=== PATIENT | female | born 1995 ===

== ENCOUNTER 2019-11-22 12:36 | Inpatient (IN) | payer OTHER ==
[2019-11-22 15:51] LABS: Hematocrit 39.9 % (30.3-42.9); Hemoglobin 13.6 gm/dl (10.1-14.3); Mean Corpuscular HGB Conc 34 % (30-34); Mean Corpuscular Volume 91 fl (79-97); Platelet Count 221 K/mm3 (140-440); Red Blood Count 4.38 M/mm3 (3.65-5.03); Red Cell Distribution Width 14.1 % (13.2-15.2)
[2019-11-22] MEDS ORDERED: fentaNYL 100 MCG/2 ML INJ IV ONE ×2 (16:21→18:40)
[2019-11-22] MEDS ORDERED: LACTATED RINGERS 1,000 ML IV ONE (16:21)
[2019-11-22] MEDS ORDERED: fentaNYL 100 MCG/2 ML INJ ONE (18:45)
--- NOTE | 2019-11-22 19:12 | Ultrasound Report ---
ULTRASOUND BIOPHYSICAL PROFILE INDICATION / CLINICAL INFORMATION: FWB. COMPARISON: None available. FINDINGS: BREATHING MOVEMENT = 2 GROSS BODY MOVEMENT = 2 TONE = 2 QUALITATIVE AMNIOTIC FLUID VOLUME = 2 TOTAL BIOPHYSICAL SCORE = 8/8 AMNIOTIC FLUID INDEX (cm) = 1.6 PRESENTATION: Cephalic. HEART RATE (beats per minute): 137 IMPRESSION: 1. biophysical profile = 8/8 2. GUILLERMO is low measuring 1.6 cm, as above, concerning for oligohydramnios Signer Name: Vargas Montenegro MD Signed: 11/22/2019 7:07 PM Workstation Name: [id number]
[2019-11-22] MEDS ORDERED: BUTORPHANOL 2 MG/1 ML INJ IV PRN (19:24)
[2019-11-22] MEDS ORDERED: MINERAL OIL 30 ML ORAL LIQD PO PRN (19:25)
[2019-11-22] MEDS ORDERED: TERBUTALINE 1 MG/1 ML INJ IVP PRN (19:25)
[2019-11-22] MEDS ORDERED: TERBUTALINE 1 MG/1 ML INJ SUB-Q PRN (19:25)
[2019-11-22] MEDS ORDERED: LIDOCAINE (2%) 20 MG/1 ML VIAL 20 ML MDV INFILTRATI ONE (19:25)
[2019-11-22] MEDS ORDERED: ePHEDrine SULFATE 50 MG/1 ML INJ IV PRN (19:25)
[2019-11-22] MEDS ORDERED: LACTATED RINGERS 1,000 ML IV SCH (20:00)
[2019-11-22] MEDS ORDERED: OXYTOCIN 20 UNIT/1000ML DRIP 20 UNITS/1,000 ML BAG IV SCH (20:00)
[2019-11-22] MEDS ORDERED: LANOLIN/ZINC/DIMETHICONE (LANSINOH) 7 GM TP PRN (20:49)
[2019-11-22] MEDS ORDERED: diphenhydrAMINE 25 MG CAP PO PRN (20:49)
[2019-11-22] MEDS ORDERED: WITCH HAZEL/ GLYCERIN PAD TP PRN (20:49)
[2019-11-22] MEDS ORDERED: HYDROcodone/ACETAMINOPHEN 5-325 MG TAB PO PRN (21:00)
--- NOTE | 2019-11-22 21:18 | History and Physical Report ---
History of Present Illness Date of examination: 11/22/19 Date of admission: 11/22/19 12:36 Chief complaint: My water broke this morning History of present illness: Early entry to care, course complicated by Anemia. Past History Past Medical History: no pertinent history Past Surgical History: no surgical history Family/Genetic History: none Social history: no significant social history, single - Obstetrical History Expected Date of Delivery: 12/05/19 Actual Gestation: 38 Week(s) 1 Day(s) : 2 Para: 1 Hx # Term Pregnancies: 1 Number of Living Children: 1 Medications and Allergies Allergies Allergy/AdvReac Type Severity Reaction Status Date / Time No Known Allergies Allergy Unverified 11/08/19 18:57 Home Medications Medication Instructions Recorded Confirmed Last Taken Type No Known Home Medications [No 11/22/19 11/22/19 Unknown History Reported Home Medications] Active Meds: Active Medications Butorphanol Tartrate (Stadol) 2 mg IV Q2H PRN PRN Reason: Labor Pain Ephedrine Sulfate (Ephedrine Sulfate) 10 mg IV Q2M PRN PRN Reason: Hypotension Oxytocin/Sodium Chloride (Pitocin/Ns 20 Unit/1000ml Drip) 20 units in 1,000 mls @ 125 mls/hr IV DIRECT NILS Lactated Ringer's (Lactated Ringers) 1,000 mls @ 125 mls/hr IV DIRECT NILS Last Admin: 11/22/19 19:00 Dose: 125 mls/hr Documented by: Mineral Oil (Mineral Oil) 30 ml PO QHS PRN PRN Reason: Constipation Terbutaline Sulfate (Brethine) 0.25 mg SUB-Q ONCE PRN PRN Reason: Hyperstimulation/Hypertonicity Terbutaline Sulfate (Brethine) 0.25 mg IVP ONCE PRN PRN Reason: Hyperstimulation/Hypertonicity Review of Systems All systems: negative - Vital Signs Vital signs: Vital Signs Pulse Pulse Ox 77 98 11/22/19 13:20 11/22/19 13:20 Temp Pulse Resp BP Pulse Ox 97.8 F 102 H 18 119/71 99 11/22/19 19:59 11/22/19 21:08 11/22/19 19:59 11/22/19 20:51 11/22/19 21:08 - Physical Exam Breasts: Positive: normal Cardiovascular: Regular rate Lungs: Positive: Clear to auscultation, Normal air movement Abdomen: Positive: normal appearance, soft, normal bowel sounds Genitourinary (Female): Positive: normal external genitalia, normal perenium Vagina: Positive: normal moisture Uterus: Positive: enlarged Anus/Rectum: Positive: normal perianal skin - Obstetrical FHR: category 1 Uterine Contraction Monitor Mode: External Cervical Dilatation: 2 Cervical Effacement Percentage: 60 station: -3 Uterine Contraction Pattern: Regular Uterine Tone Measurement Phase: Resting Uterine Contraction Intensity: Moderate Results Result Diagrams: 11/22/19 14:54 All other labs normal. Assessment and Plan A: IUP @ 38 1/7 Weeks SROM GBS Negative P: Admit to L&D per Routine Orders Expectant Management
--- NOTE | 2019-11-22 21:24 | Procedure Note ---
OB Delivery Note - Delivery Date of Delivery: 11/22/19 (2033) Surgeon: NAUN VIDAL Estimated blood loss: 200cc - Vaginal Delivery presentation: vertex Delivery position: OA Intrapartum events: none Delivery induction: none Delivery monitor: external FHT, external uterine Route of delivery: Delivery placenta: spontaneous Delivery cord: 3 umbilical vessels Episiotomy: none Delivery laceration: none Anesthesia: none Delivery comments: of a live 6'14 female over a intact perineum under IV pain control with Apgars of 8 and 9 at 2033 on 11/22/2019. Infant directly to maternal abd/chest, skin to skin contact. Spontaneous delivery of placenta complete and intact with Spann side presenting at 2036. Fundus is firm and midline located 4 below the U. Lochia is scant. Delayed cord clamping and cutting; Cord cut by Father of the Baby. Cord blood collected; Placenta discarded. - A at 1 minute: 8 at 5 minutes: 9 Infant Gender: Female
[2019-11-23] MEDS: IBUPROFEN 600 MG TAB PO SCH ×4 (00:12→17:45)
[2019-11-23] MEDS: FERROUS SULFATE 325 MG TAB PO SCH ×3 (00:12→21:25)
--- NOTE | 2019-11-23 08:38 | Progress Note ---
Assessment and Plan A: PP Day #1 Stable P: Follow Routine Orders D/C home today per patient request RTO in 6 Weeks Subjective - Subjective Date of service: 11/23/19 Interval history: Early entry to care, course complicated by Anemia. Patient reports: appetite normal, voiding normally, pain well controlled, flatus, ambulating normally [place]: doing well, bottle feeding (and ) Objective - Vital Signs Latest vital signs: Vital Signs Temp Pulse Resp BP BP Pulse Ox 11/23/19 04:01 98.2 F 69 20 104/62 98 11/23/19 00:12 18 11/22/19 23:30 98.2 F 74 18 115/58 98 11/22/19 23:01 76 109/69 11/22/19 23:00 98.9 F 76 109/69 11/22/19 22:33 94 H 98 11/22/19 22:28 87 99 11/22/19 22:23 71 99 11/22/19 22:18 83 99 11/22/19 22:13 77 99 11/22/19 22:08 82 98 11/22/19 22:03 75 98 11/22/19 21:58 72 99 11/22/19 21:53 76 99 11/22/19 21:52 92 H 110/59 11/22/19 21:48 96 H 99 11/22/19 21:43 82 99 11/22/19 21:38 86 99 11/22/19 21:33 80 99 11/22/19 21:28 71 100 11/22/19 21:23 76 99 11/22/19 21:18 98 H 99 11/22/19 21:13 99 H 99 11/22/19 21:08 102 H 99 11/22/19 21:03 96 H 100 11/22/19 20:58 99 H 100 11/22/19 20:53 100 H 100 11/22/19 20:51 92 H 119/71 11/22/19 20:48 79 99 11/22/19 20:43 102 H 99 11/22/19 20:38 114 H 99 11/22/19 20:33 122 H 98 11/22/19 20:28 120 H 99 11/22/19 20:23 96 H 98 11/22/19 20:22 112 H 119/64 06/17/20 20:18 99 H 97 0617/20 20:13 100 H 99 06/17/20 20:08 84 98 06/17/20 20:03 100 H 98 0617/20 19:59 97.8 F 100 H 18 135/83 135/83 0617/20 19:58 87 99 0617/20 19:40 100 H 98 0617/20 19:35 93 H 98 061720 19:30 92 H 100 1720 19:25 97 H 99 0617/20 19:21 88 100/60 0617/20 19:20 87 98 061720 19:15 94 H 98 1720 19:10 87 98 061720 19:05 89 97 1720 19:00 78 98 061720 18:55 77 99 061720 18:51 72 122/76 0617/20 18:50 72 99 1720 18:45 89 100 20 18:40 86 98 20 18:35 94 H 99 1720 18:30 89 98 061720 18:25 88 99 061720 18:21 86 119/68 0617/20 18:20 88 98 1720 18:15 84 98 1720 18:10 82 98 061720 18:05 85 99 1720 17:55 86 99 061720 17:52 86 108/62 1720 17:50 77 98 061720 17:45 80 98 061720 17:40 86 98 061720 17:35 91 H 99 1720 17:33 98.8 F 75 98 0617/20 17:30 86 99 0617/20 17:25 81 99 061720 17:21 92 H 110/60 061720 17:20 93 H 99 061720 17:18 100 H 74 L 061720 17:15 98 H 97 0617/20 17:10 84 99 0617/20 17:05 86 98 061720 17:00 89 97 1720 16:58 95 H 92 20 16:55 101 H 98 20 16:51 80 119/69 0620 16:50 86 98 20 16:45 85 98 20 16:40 89 98 20 16:35 75 99 0620 16:30 85 98 20 16:25 94 H 97 20 16:22 77 107/62 20 16:20 75 98 20 16:15 78 100 20 16:10 84 99 1720 16:05 94 H 99 11/22/19 16:00 85 98 20 15:55 83 98 20 15:52 82 112/53 11/22/19 15:50 91 H 98 11/22/19 15:45 95 H 98 11/22/19 15:40 84 98 11/22/19 15:35 100 H 98 11/22/19 15:30 89 97 11/22/19 15:25 80 98 11/22/19 15:22 83 110/57 11/22/19 15:20 90 97 11/22/19 15:15 78 98 20 15:10 87 98 11/22/19 15:05 84 98 11/22/19 15:00 87 99 11/22/19 14:55 105 H 98 11/22/19 14:52 89 112/58 11/22/19 14:50 100 H 97 11/22/19 14:45 89 96 11/22/19 14:40 104 H 98 11/22/19 14:35 82 98 11/22/19 14:30 93 H 98 11/22/19 14:25 100 H 98 11/22/19 14:21 95 H 113/70 11/22/19 14:20 95 H 98 11/22/19 14:15 93 H 97 11/22/19 14:10 89 98 11/22/19 14:05 96 H 98 11/22/19 14:00 85 97 11/22/19 13:55 95 H 98 11/22/19 13:51 83 111/62 20 13:50 83 98 11/22/19 13:45 86 97 11/22/19 13:43 98.1 F 11/22/19 13:40 77 96 11/22/19 13:35 103 H 98 11/22/19 13:30 104 H 98 11/22/19 13:25 83 98 11/22/19 13:21 97 H 120/60 11/22/19 13:20 77 98 Intake and Output 11/22/19 11/23/19 11/23/19 22:59 06:59 14:59 Intake Total 120 Output Total 900 Balance -780 Intake: Oral 120 Output: Urine 900 Void 900 Other: Total, Intake Amount 120 Total, Output Amount 900 # Voids Void 1 1 Estimated Blood Loss 200 - Exam Breasts: Present: normal Cardiovascular: Present: Regular rate Lungs: Present: Clear to auscultation, Normal air movement Abdomen: Present: normal appearance, soft, normal bowel sounds Uterus: Present: normal, firm, fundal height below umbilicus Extremities: Present: normal
--- NOTE | 2019-11-23 08:39 | Discharge Summary ---
Providers - Providers Date of Admission: 11/22/19 12:36 Date of discharge: 11/23/19 Attending physician: SONIYA QUILES Primary care physician: SONIYA QUILES Hospitalization Reason for admission: rupture of membranes Delivery: Episiotomy: none Laceration: none Other procedures: none complications: none Discharge diagnosis: IUP at term delivered baby: female Condition at discharge: Good Disposition: DC-01 TO HOME OR SELFCARE Plan - Provider Discharge Summary Activity: routine, no sex for 6 weeks, no heavy lifting 4 weeks, no strenuous exercise Diet: routine Instructions: routine Additional instructions: [] Smoking cessation referral if applicable(refer to patient education folder for contact #) [] Refer to [facility]'s [facility] Booklet Call your doctor immediately for: * Fever > 100.5 * Heavy vaginal bleeding ( >1 pad per hour) * Severe persistent headache * Shortness of breath * Reddened, hot, painful area to leg or breast * Drainage or odor from incision. * Keep incision clean and dry at all times and follow doctor's instructions regarding bathing/showering - Follow up plan Follow up: SONIYA QUILES MD [Primary Care Provider] - 6 Weeks
[2019-11-23 09:52] LABS: Hemoglobin 12.5 gm/dl (10.1-14.3)
[2019-11-23] MEDS ORDERED: PRENATAL VIT27-FE FUMARATE-FOLIC ACID VIT TAB PO SCH (10:00)
[2019-11-23 23:03] VITALS: BP 108/68
== END 2019-11-23 22:30 | disposition home or self-care (01) | DRG 775 ==
LOC: LD 12:36 → OB 23:35
PROVIDERS: ADMIT Obstetrics & Gynecology; ATTEND Obstetrics & Gynecology
PROC: 10E0XZZ Delivery of Products of Conception, External Approach (ICD-10-PCS; principal; 2019-11-22)
DX: O99.02 Anemia complicating childbirth (principal); D64.9 Anemia, unspecified; Z3A.38 38 weeks gestation of pregnancy; Z37.0 Single live birth
CPT/HCPCS: 36415; 76815; 76819; 85014; 85018; 85027; 86592; 86850; 86900; 86901; G0378; J2590; J3010; J7120